=== PATIENT | female | born 1970 | race Asian ===

== ENCOUNTER 2024-06-30 08:30 | Day surgery (SDC) | payer BC, SELFPAY ==
[2024-06-29 11:49] VITALS: BMI 24.2
[2024-06-30] VITALS (8 sets, daily range): BP systolic 116–154; BP diastolic 69–90; PULSE 103–114; RESP 16–26; TEMP 36.6–36.7; O2SAT 98–100; BMI 23.6
[2024-06-30] MEDS: DiphenhydrAMINE INJ 50 MG/ML VIAL 25 MG IV (10:23)
[2024-06-30] MEDS: ONDANSETRON INJ 2 MG/ML INJ 2 ML 4 MG IV (10:23)
[2024-06-30] MEDS: fentaNYL CIT INJ 50 mCg/ML AMP 2ML (ASD USE ONLY) IV (10:24)
[2024-06-30] MEDS: MIDAZOLAM INJ 1 MG/ML VIAL 2 ML (ASD USE ONLY) 2 MG IV (10:24)
--- NOTE | 2024-06-30 11:47 | SUR.PHASEII ---
1026: Pt received for recovery. Report from Anna SALDANA. Pt sleepy. Easily aroused with eye opening then drifts back to sleep. Resp even, unlabored. VS stable. No c/o pain, discomfort. 1050: Pt more awake, alert. VS stable. Denies pain. Sitting up tolerating po fluids with no difficulty swallowing and no n/v. 1100: Pt fully awake, oriented x3. Assisted to restroom. Ambulation steady. 1118: Pt dressed and in transport chair. Pt and sister stated understanding of discharge instructions. Pt discharged from [facility] in stable condition.
== END 2024-06-30 11:18 | disposition home or self-care (01) ==
PROVIDERS: PCP Family Medicine; Referring Provider Specialist; Visit Provider Specialist
PROC: 0DBE8ZX Excision of Large Intestine, Via Natural or Artificial Opening Endoscopic, Diagnostic (ICD-10-PCS; CPT 45380; principal; 2024-06-30 09:00)
DX: Z12.11 Encounter for screening for malignant neoplasm of colon (principal); K64.9 Unspecified hemorrhoids; K57.30 Diverticulosis of large intestine without perforation or abscess without bleeding
CPT/HCPCS: 45378; J1200; J2250; J2405; J3010

== ENCOUNTER → 2024-07-31 | Outpatient (CLI) | payer BC, SELFPAY ==
--- NOTE | 2024-07-31 13:30 | XR_ITS ---
Examination: Breast ultrasound, unilateral, right complete Date and time of exam: July 31, 2024 1405 hours INDICATIONS: Right breast sonogram January 21, 2024 12:00 nodule 14 mm 12:00 nodule 18 mm, 12:00 nodule biopsied February 08, 2024 Technique: Real-time leonard scale ultrasonographic imaging performed right breast including all 4 quadrants as well as nipple retroareolar and axillary region. Findings: 12:00 mass lobular margins 11 x 12 mm 12:00 oval mass indistinct margins breast biopsy marker 16 x 14 mm IMPRESSION: BI-RADS Category 3: Probably benign findings One additional 6 month right breast sonogram follow-up is needed to document stability of nodules described above
== END | disposition home or self-care (01) ==
LOC: CDIM 13:29
PROVIDERS: PCP Family Medicine; Referring Provider Family Medicine; Visit Provider Family Medicine
DX: N63.15 Unspecified lump in the right breast, overlapping quadrants (principal)
CPT/HCPCS: 76641

== ENCOUNTER → 2025-01-23 | Outpatient (CLI) | payer BC, SELFPAY ==
--- NOTE | 2025-01-23 09:00 | XR_ITS ---
Examination: Breast ultrasound, unilateral, right complete Date and time of exam: January 23, 2025 0925 hours INDICATIONS: Right breast sonogram July 31, 2024 12:00 nodule right breast 11 x 12 mm, 12:00 nodule right breast with breast biopsy marker 16 x 14 mm Technique: Real-time leonard scale ultrasonographic imaging performed right breast including all 4 quadrants as well as nipple retroareolar and axillary region. Findings: 12:00 nodule lobular margins 14 x 11 mm 12:00 nodule with breast biopsy marker lobular margins 20 x 14 mm IMPRESSION: BI-RADS Category 4: Suspicious for malignancy Recommend repeat ultrasound-guided biopsy of the 12:00 nodule with breast biopsy marker, 20 x 10 x 14 mm which has indistinct margins, ultrasound-guided
== END | disposition home or self-care (01) ==
LOC: CDIM 08:58
PROVIDERS: PCP Family Medicine; Referring Provider Family Medicine; Visit Provider Family Medicine
DX: N63.15 Unspecified lump in the right breast, overlapping quadrants (principal)
CPT/HCPCS: 76641